=== PATIENT | female | born 1975 | race Caucasian/White ===

== ENCOUNTER 2018-03-15 09:52 | Inpatient (IN) | payer OTHER ==
[~2018-03-15] VITALS: Ht 165.1 cm; Wt 66.9 kg
[~2018-03-15 09:52] MED LIST: BACLOFEN20 MG PO; DAILY VITAMIN1 EAC2 PO; ENULOSE10 GM/15 M PO; EXELON3 MG PO; JUNEL1 EAC1 PO; KLONOPIN0.5 M1 PO; LEVOTHYROXINE50 MCG PO; LOPERAMIDE2 MG PO; MILK OF MAGN PO; NEO-SYNEPHRINE15 M4 BOTH NARES; NEURONTIN300 MG PO; PRIMIDONE250 MG PO; PROBIOTIC FORM1 EAC1 PO; PROPRANOLOL HCL20 MG PO; TUSSIN DM LIQU118 ML PO; TYLENOL REGULA325 MG PO
[2018-03-15 10:35] LABS: HEMATOCRIT 34.9 % (36.0-46.0); HEMOGLOBIN 11.8 G/DL (11.9-15.5); MCH 32.4 PG (29.0-34.0); MCHC 33.8 G/DL (30.0-36.0); MCV 95.9 FL (83-99); PLATELET COUNT 297 K/uL (156-360); RBC DIS.WIDTH-CV 12.4 % (11.8-14.6); RBC DIS.WIDTH-SD 42.4 % (39-53); RED BLOOD COUNT 3.64 M/uL (3.80-5.20); WHITE BLOOD COUNT 11.4 K/uL (4.1-10.2)
[2018-03-15 10:46] LABS: APPEARANCE CLOUDY ((CLEAR)); BILIRUBIN NEGATIVE; BLOOD NEGATIVE; COLOR YELLOW ((YELLOW)); GLUCOSE (STRIP) NEGATIVE; KETONES NEGATIVE; LEUKOCYTES TRACE; NITRITE NEGATIVE; PROTEIN (STRIP) NEGATIVE; SPECIFIC GRAVITY 1.019 (1.000-1.030); UROBILINOGEN 0.2 MG/DL (0.2-1.0)
[2018-03-15 10:47] LABS: CHLORIDE 105 mEq/L (99-109); POTASSIUM 4.9 mEq/L (3.7-5.4); SODIUM 142 mEq/L (136-147)
[2018-03-15 10:49] LABS: GLUCOSE 79 mg/dL (70-99)
[2018-03-15 10:53] LABS: CREATININE 0.8 mg/dL (0.6-1.3); GFR ESTIMATE (CALCULATED) > 59 mL/min/
[2018-03-15 10:54] LABS: UREA NITROGEN (BUN) 11 mg/dL (9-23)
[2018-03-15 10:57] LABS: TROP-I INTERPRETATION NEGATIVE; TROPONIN-I < 0.01 ng/mL (0.0-0.30)
[2018-03-15 11:01] LABS: QUANTITATIVE HCG < 4.0 MIU/ML
[2018-03-15 11:09] LABS: BACTERIA RARE /HPF; EPITHELIAL CELLS 1+ /HPF; MUCUS TRACE /LPF; RED BLOOD CELLS 0-5 /HPF (0-5); UCUL ADDED? NO; WHITE BLOOD CELLS 0-5 /HPF (0-5)
[2018-03-15] MEDS ORDERED: PRIMIDONE250 MG PO (14:02)
[2018-03-15] MEDS ORDERED: AMANTADINE100 MG PO (14:03)
[2018-03-15] MEDS ORDERED: EAR WAX DROPS15 ML BOTH EARS (14:04)
[2018-03-15] MEDS ORDERED: TRIHEXYPHENIDYL2 MG PO (14:06)
[2018-03-15] MEDS ORDERED: OMEPRAZOLE20 M2 PO (14:07)
[2018-03-15 15:55] VITALS: BP 104/58
[2018-03-15 16:19] LABS: HEMOGLOBIN 11.3 G/DL (11.9-15.5); MCV 94.7 FL (83-99)
[2018-03-15 19:45] VITALS: BP 124/58
[2018-03-16] VITALS (8 sets, daily range): BP systolic 83–124; BP diastolic 48–60
[2018-03-16 00:39] LABS: HEMATOCRIT 32.7 % (36.0-46.0); HEMOGLOBIN 11.2 G/DL (11.9-15.5); MCV 94.5 FL (83-99)
[2018-03-16 08:19] LABS: HEMATOCRIT 31.7 % (36.0-46.0); HEMOGLOBIN 10.4 G/DL (11.9-15.5); MCV 93.8 FL (83-99)
[2018-03-16 08:20] LABS: HEMATOCRIT 31.1 % (36.0-46.0); HEMOGLOBIN 10.4 G/DL (11.9-15.5); MCH 31.4 PG (29.0-34.0); MCHC 33.4 G/DL (30.0-36.0); PLATELET COUNT 250 K/uL (156-360); RBC DIS.WIDTH-CV 12.3 % (11.8-14.6); RBC DIS.WIDTH-SD 42.1 % (39-53); RED BLOOD COUNT 3.31 M/uL (3.80-5.20); WHITE BLOOD COUNT 7.8 K/uL (4.1-10.2)
[2018-03-16 08:42] LABS: ALKALINE PHOSPHATASE 86 IU/L (3-129); ALT (GPT) 25 IU/L (3-49); AST (GOT) 24 IU/L (2-34); CHLORIDE 104 MEQ/L (99-109); CREATININE 0.7 MG/DL (0.6-1.3); GFR ESTIMATE (CALCULATED) > 59 mL/min/; GLUCOSE 105 mg/dL (70-99); POTASSIUM 4.1 MEQ/L (3.7-5.4); SODIUM 138 MEQ/L (136-147); TOTAL BILIRUBIN 0.4 MG/DL (0.0-1.0); TOTAL PROTEIN 5.4 G/DL (6.4-8.3); UREA NITROGEN (BUN) 8 mg/dL (9-23)
[2018-03-16 14:29] LABS: C DIFF TOXIN NEGATIVE (NEGATIVE)
[2018-03-16 17:47] LABS: HEMATOCRIT 31.7 % (36.0-46.0); HEMOGLOBIN 10.4 G/DL (11.9-15.5); MCV 94.9 FL (83-99)
[2018-03-17 04:04] VITALS: BP 90/47
[2018-03-17 05:51] LABS: HEMATOCRIT 29.5 % (36.0-46.0); HEMOGLOBIN 9.9 G/DL (11.9-15.5); MCH 31.9 PG (29.0-34.0); MCHC 33.6 G/DL (30.0-36.0); MCV 95.2 FL (83-99); PLATELET COUNT 267 K/uL (156-360); RBC DIS.WIDTH-CV 12.5 % (11.8-14.6); RBC DIS.WIDTH-SD 42.4 % (39-53); WHITE BLOOD COUNT 7.4 K/uL (4.1-10.2)
[2018-03-17 09:20] VITALS: BP 117/64
[2018-03-17 12:24] VITALS: BP 96/52
[2018-03-17 20:30] VITALS: BP 119/62
[2018-03-18 00:10] VITALS: BP 90/58
[2018-03-18 03:20] VITALS: BP 93/55
[2018-03-18 05:26] LABS: BASOPHIL (%) 0.4 % (0-1); EOSINOPHIL (%) 22.6 % (0-5); EOSINOPHIL COUNT 1.6 K/uL (0-0.3); HEMATOCRIT 28.7 % (36.0-46.0); HEMOGLOBIN 9.5 G/DL (11.9-15.5); IMMATURE GRANULOCYTE (%) 0.3 % (0.0-0.7); LYMPHOCYTE (%) 30.7 % (15-42); LYMPHOCYTE COUNT 2.1 K/uL (1.0-2.8); MCH 31.4 PG (29.0-34.0); MCHC 33.1 G/DL (30.0-36.0); MCV 94.7 FL (83-99); MONOCYTE (%) 12.7 % (3-12); MONOCYTE COUNT 0.9 K/uL (0-0.8); NEUTROPHIL (%) 33.3 % (45-76); NEUTROPHIL COUNT 2.3 K/uL (1.8-6.4); PLATELET COUNT 249 K/uL (156-360); RBC DIS.WIDTH-CV 12.4 % (11.8-14.6); RBC DIS.WIDTH-SD 42.4 % (39-53); RED BLOOD COUNT 3.03 M/uL (3.80-5.20); WHITE BLOOD COUNT 6.9 K/uL (4.1-10.2)
[2018-03-18 05:54] LABS: ALBUMIN 2.7 G/DL (3.2-4.8); C-REACTIVE PROTEIN 48.9 MG/L (0-10); CHLORIDE 108 MEQ/L (99-109); CREATININE 0.6 MG/DL (0.6-1.3); GFR ESTIMATE (CALCULATED) > 59 mL/min/; GLUCOSE 83 mg/dL (70-99); PHOSPHORUS 2.9 mg/dL (2.5-4.9); POTASSIUM 4.4 MEQ/L (3.7-5.4); SODIUM 142 MEQ/L (136-147); UREA NITROGEN (BUN) 3 mg/dL (9-23)
[2018-03-18 06:38] LABS: ERTH.SED.RATE 27 MM/HR (0-20)
[2018-03-18 07:25] VITALS: BP 104/61
[2018-03-18 11:49] VITALS: BP 94/51
[2018-03-18 19:00] VITALS: BP 111/62
[2018-03-19] VITALS: BP 87/48
[2018-03-19 03:59] VITALS: BP 98/53
[2018-03-19 05:23] LABS: HEMATOCRIT 27.6 % (36.0-46.0); HEMOGLOBIN 9.2 G/DL (11.9-15.5); MCH 31.4 PG (29.0-34.0); MCHC 33.3 G/DL (30.0-36.0); MCV 94.2 FL (83-99); PLATELET COUNT 266 K/uL (156-360); RBC DIS.WIDTH-CV 12.1 % (11.8-14.6); RBC DIS.WIDTH-SD 41.6 % (39-53); RED BLOOD COUNT 2.93 M/uL (3.80-5.20); WHITE BLOOD COUNT 7.2 K/uL (4.1-10.2)
[2018-03-19 11:31] VITALS: BP 111/59
[2018-03-19 15:14] VITALS: BP 108/58
[2018-03-19 19:12] VITALS: BP 106/68
[2018-03-20 03:57] VITALS: BP 92/50
[2018-03-20 05:17] LABS: HEMATOCRIT 28.7 % (36.0-46.0); HEMOGLOBIN 9.9 G/DL (11.9-15.5); MCH 32.5 PG (29.0-34.0); MCHC 34.5 G/DL (30.0-36.0); MCV 94.1 FL (83-99); PLATELET COUNT 296 K/uL (156-360); RBC DIS.WIDTH-CV 12.3 % (11.8-14.6); RBC DIS.WIDTH-SD 41.9 % (39-53); RED BLOOD COUNT 3.05 M/uL (3.80-5.20); WHITE BLOOD COUNT 8.3 K/uL (4.1-10.2)
[2018-03-20 05:23] LABS: CHLORIDE 106 mEq/L (99-109); SODIUM 140 mEq/L (136-147)
[2018-03-20 05:29] LABS: CREATININE 0.7 mg/dL (0.6-1.3); GFR ESTIMATE (CALCULATED) > 59 mL/min/; UREA NITROGEN (BUN) 5 mg/dL (9-23)
[2018-03-20 05:57] LABS: GLUCOSE 105 mg/dL (70-99)
[2018-03-20 07:00] VITALS: BP 113/63
[2018-03-20 11:39] VITALS: BP 103/72
[2018-03-20 15:07] VITALS: BP 107/56
[2018-03-20 19:21] VITALS: BP 115/55
[2018-03-20] MEDS ORDERED: PREDNISONE5 MG PO (19:56)
[2018-03-20] MEDS ORDERED: DELZICOL400 M1 PO (19:56)
[2018-03-21 00:27] VITALS: BP 92/54
[2018-03-21 05:56] LABS: HEMATOCRIT 31.7 % (36.0-46.0); HEMOGLOBIN 10.4 G/DL (11.9-15.5); MCHC 32.8 G/DL (30.0-36.0); MCV 94.3 FL (83-99); PLATELET COUNT 330 K/uL (156-360); RBC DIS.WIDTH-CV 12.4 % (11.8-14.6); RBC DIS.WIDTH-SD 42.5 % (39-53); RED BLOOD COUNT 3.36 M/uL (3.80-5.20); WHITE BLOOD COUNT 8.1 K/uL (4.1-10.2)
[2018-03-21 06:21] LABS: CHLORIDE 104 MEQ/L (99-109); CREATININE 0.7 MG/DL (0.6-1.3); GFR ESTIMATE (CALCULATED) > 59 mL/min/; GLUCOSE 96 mg/dL (70-99); POTASSIUM 4.6 MEQ/L (3.7-5.4); SODIUM 140 MEQ/L (136-147); UREA NITROGEN (BUN) 9 mg/dL (9-23)
[2018-03-21 08:28] VITALS: BP 89/50
[2018-03-21 11:47] VITALS: BP 91/55
== END 2018-03-21 15:15 | disposition home or self-care (01) | DRG 386 ==
LOC: EME 09:52 → 4SOUTH 12:40 → EDOF 12:40 → ENRESERV 12:45 → 4SOUTH 15:25
PROVIDERS: Emergency Medicine; Hospitalist; Internal Medicine; Internal Medicine Gastroenterology; Nurse Practitioner Adult Health
DX: K50.911 Crohn's disease, unspecified, with rectal bleeding (principal); D62 Acute posthemorrhagic anemia; F79 Unspecified intellectual disabilities; G80.9 Cerebral palsy, unspecified; E03.9 Hypothyroidism, unspecified; G40.909 Epilepsy, unspecified, not intractable, without status epilepticus; K62.89 Other specified diseases of anus and rectum; F03.90 Unspecified dementia, unspecified severity, without behavioral disturbance, psychotic disturbance, mood disturbance, and anxiety; K80.20 Calculus of gallbladder without cholecystitis without obstruction
CPT/HCPCS: 71045; 74176; 80048; 80048 91; 80053; 80069; 81003; 84484; 84702; 85014; 85018; 85025; 85027; 85651; 86140; 86850; 86900; 86901; 87493; 87506; 88305; 93005; 99281; 99285; C9113; G0378; G9033; J0696; J7030; J7512